=== PATIENT | female | born 1950 | race Asian ===

== ENCOUNTER 2018-11-20 12:21 | Emergency (ER) | payer OTHER ==
[~2018-11-20] VITALS: Ht 152.4 cm; Wt 53.1 kg
[2018-11-20 12:26] VITALS: Ht 152.4 cm; Wt 53.1 kg
[2018-11-20 14:33] VITALS: BP 114/54
== END 2018-11-20 14:33 | disposition home or self-care (01) ==
LOC: ED 12:21
DX: S52.501A Unspecified fracture of the lower end of right radius, initial encounter for closed fracture (principal); S52.691A Other fracture of lower end of right ulna, initial encounter for closed fracture; E11.9 Type 2 diabetes mellitus without complications; E78.00 Pure hypercholesterolemia, unspecified; Z88.1 Allergy status to other antibiotic agents; W01.0XXA Fall on same level from slipping, tripping and stumbling without subsequent striking against object, initial encounter; Y93.89 Activity, other specified; Y92.89 Other specified places as the place of occurrence of the external cause; Y99.8 Other external cause status
CPT/HCPCS: J3490; J7040